=== PATIENT | male | born 1945 | race African-American/Black ===

== ENCOUNTER 2024-08-16 16:08 | Emergency (ER) | payer MEDICARE, OTHER ==
[~2024-08-16] VITALS: Ht 180.3 cm; Wt 110.0 kg
[2024-08-16 16:14] VITALS: O2SAT 97
[2024-08-16 16:23] VITALS: BP 153/87; PULSE 74; RESP 16; TEMP 98.9; O2SAT 100
[2024-08-16 17:27] LABS: BASOPHILS % 0.7 % (0.0-2.0); EOSINOPHILS % 2.2 % (0.0-5.0); HEMOGLOBIN. 14.7 g/dL (14.0-18.0); LYMPHOCYTES % 17.1 % (20.0-50.0); MEAN CORPUSCULAR HEMOGLOBIN 32.3 pg (28.0-32.0); MEAN CORPUSCULAR HGB CONC 33.4 g/dL (31.0-37.0); MEAN CORPUSCULAR VOLUME 96.7 fL (80.0-94.0); MEAN PLATELET VOLUME 8.4 fl (7.4-10.4); MONOCYTES % 10.2 % (2.0-8.0); NEUTROPHILS % 69.8 % (40.0-76.0); PLATELET 263 x1000/uL (130-400); RED BLOOD CELL COUNT 4.55 mill/uL (4.7-6.1); RED CELL DISTRIBUTION WIDTH 13.7 % (11.6-14.6); WHITE BLOOD COUNT 6.8 x1000/uL (4.5-11.0)
[2024-08-16 17:31] LABS: CHLORIDE 105 mEq/L (98-107); POTASSIUM 4.1 mEq/L (3.5-5.1); SODIUM 141 mEq/L (136-145)
[2024-08-16 17:32] LABS: CALCIUM 9.4 mg/dL (8.7-10.4); CARBON DIOXIDE 32 mEq/L (21-32)
[2024-08-16 17:37] LABS: CREATININE 1.3 mg/dL (0.6-1.3); GLUCOSE 83 mg/dL (70-105); INR 0.9; PROTHROMBIN TIME 10.3 sec (9.6-11.0); UREA NITROGEN BLOOD 18 mg/dL (9-23)
[2024-08-16 17:38] LABS: TROPONIN I HIGH SENSITIVITY 10 ng/L (3.0-53)
[2024-08-16 21:30] LABS: CLARITY URINE CLEAR (CLEAR); COLOR URINE YELLOW (YELLOW); GLUCOSE URINE 3+ (NEGATIVE); KETONES URINE NEGATIVE (NEGATIVE); LEUKOCYTE ESTERASE URINE NEGATIVE (NEGATIVE); NITRITE URINE NEGATIVE (NEGATIVE); OCCULT BLOOD URINE NEGATIVE (NEGATIVE); PROTEIN URINE NEGATIVE (NEGATIVE); SPECIFIC GRAVITY URINE 1.015 (1.005-1.030); UROBILINOGEN URINE 0.2 E.U./dL (0.2-1.0)
[2024-08-16 22:03] LABS: WBC URINE 0-2 /hpf (0-2)
[2024-08-16 22:04] LABS: BACTERIA URINE TRACE; RBC URINE NONE SEEN /hpf (0-2); SQUAMOUS EPITHELIAL CELL URINE NONE SEEN /lpf (RARE/1+)
[2024-08-16] MEDS ORDERED: TOPUD MT (23:49)
[2024-08-16] MEDS ORDERED: ONDA4TAB50 MT (23:49)
[2024-08-16] MEDS ORDERED: PANT40SU MT (23:49)
== END 2024-08-17 | disposition home or self-care (01) ==
LOC: ER 16:08
DX: K92.1 Melena (principal); I10 Essential (primary) hypertension
CPT/HCPCS: 36415; 71045; 74176; 80048; 81003; 84484; 85025; 86850; 86900; 93005; 99285

== ENCOUNTER 2024-09-06 02:47 | Emergency (ER) | payer MEDICARE, OTHER ==
[~2024-09-06] VITALS: Ht 175.3 cm; Wt 102.0 kg
[~2024-09-06 02:47] MED LIST: ONDA4TAB50 MT; PANT40SU MT; TOPUD MT
[2024-09-06 02:49] VITALS: O2SAT 99
[2024-09-06 04:05] LABS: BASOPHILS % 0.8 % (0.0-2.0); EOSINOPHILS % 3.2 % (0.0-5.0); HEMATOCRIT. 45.8 % (42.0-52.0); LYMPHOCYTES % 22.1 % (20.0-50.0); MEAN CORPUSCULAR HEMOGLOBIN 31.5 pg (28.0-32.0); MEAN CORPUSCULAR HGB CONC 32.7 g/dL (31.0-37.0); MEAN CORPUSCULAR VOLUME 96.3 fL (80.0-94.0); MEAN PLATELET VOLUME 8.2 fl (7.4-10.4); MONOCYTES % 9.4 % (2.0-8.0); NEUTROPHILS % 64.5 % (40.0-76.0); PLATELET 275 x1000/uL (130-400); RED BLOOD CELL COUNT 4.75 mill/uL (4.7-6.1); WHITE BLOOD COUNT 8.6 x1000/uL (4.5-11.0)
[2024-09-06 04:18] LABS: CHLORIDE 104 mEq/L (98-107)
[2024-09-06 04:19] LABS: CARBON DIOXIDE 32 mEq/L (21-32); INR 0.9; PARTIAL THROMBOPLASTIN TIME 26.3 sec (23.4-31.0); POTASSIUM 3.6 mEq/L (3.5-5.1); PROTHROMBIN TIME 10.6 sec (9.6-11.0); SODIUM 142 mEq/L (136-145)
[2024-09-06 04:20] LABS: CALCIUM 9.6 mg/dL (8.7-10.4)
[2024-09-06 04:24] LABS: CREATININE 1.5 mg/dL (0.6-1.3); GLUCOSE 96 mg/dL (70-105)
[2024-09-06 04:25] LABS: TROPONIN I HIGH SENSITIVITY 13 ng/L (3.0-53); UREA NITROGEN BLOOD 28 mg/dL (9-23)
[2024-09-06 04:27] LABS: PHOSPHORUS 2.3 mg/dL (2.5-4.9)
[2024-09-06 04:31] LABS: ETHANOL BLOOD < 10 mg/dL (<10)
[2024-09-06 04:32] VITALS: TEMP 36.83628
[2024-09-06 04:52] LABS: *AMPHETAMINES SCREEN URINE NEGATIVE (NEGATIVE); *BARBITURATES SCREEN URINE NEGATIVE (NEGATIVE); *BENZODIAZEPINES SCREEN URINE NEGATIVE (NEGATIVE); CLARITY URINE CLEAR (CLEAR); COLOR URINE YELLOW (YELLOW); GLUCOSE URINE 2+ (NEGATIVE); KETONES URINE NEGATIVE (NEGATIVE); LEUKOCYTE ESTERASE URINE NEGATIVE (NEGATIVE); NITRITE URINE NEGATIVE (NEGATIVE); OCCULT BLOOD URINE NEGATIVE (NEGATIVE); PROTEIN URINE NEGATIVE (NEGATIVE); SPECIFIC GRAVITY URINE 1.024 (1.005-1.030); UROBILINOGEN URINE 0.2 E.U./dL (0.2-1.0)
[2024-09-06 04:53] LABS: *COCAINE SCREEN URINE NEGATIVE (NEGATIVE); CANNABINOID URINE SCREEN NEGATIVE (NEGATIVE); ECSTASY MDMA SCREEN URINE NEGATIVE (NEGATIVE); METHADONE URINE SCREEN NEGATIVE (NEGATIVE); OPIATES URINE SCREEN NEGATIVE (NEGATIVE); PHENCYCLIDINE URINE SCREEN NEGATIVE (NEGATIVE)
[2024-09-06 05:30] LABS: BACTERIA URINE NONE SEEN; RBC URINE 0-2 /hpf (0-2); SQUAMOUS EPITHELIAL CELL URINE FEW /lpf (RARE/1+); WBC URINE 0-2 /hpf (0-2)
[2024-09-06] MEDS: FUROSEMIDE 20MG TABLET PO ONE (05:58)
[2024-09-06] MEDS: DILTIAZEM HCL 60MG TABLET PO ONE (05:59)
[2024-09-06 06:19] VITALS: BP 176/97; PULSE 70; RESP 22; O2SAT 94
== END 2024-09-06 06:20 | disposition home or self-care (01) ==
LOC: ER 03:15
DX: I44.2 Atrioventricular block, complete (principal); I11.0 Hypertensive heart disease with heart failure; I50.9 Heart failure, unspecified; Z79.899 Other long term (current) drug therapy
CPT/HCPCS: 36415; 71045; 80048; 80305; 80320; 81003; 83735; 83880; 84100; 84484; 85025; 93005; 99285; G0480